=== PATIENT | male | born 1995 | race Caucasian/White ===

== ENCOUNTER 2024-03-23 06:21 | Day surgery (SDC) | payer OTHER ==
[2024-03-17 15:54] LABS: BILIRUBIN,URINE NEGATIVE (Neg); CLARITY,URINE CLEAR (Clear); COLOR,URINE YELLOW (Yellow); GLUCOSE, URINE NEGATIVE (Neg); KETONES,URINE TRACE mg/dl (Neg); LEUKOCYTE ESTERASE ,URINE NEGATIVE (Neg); NITRITES, URINE NEGATIVE (Neg); OCCULT BLOOD,URINE NEGATIVE (Neg); PROTEIN,URINE NEGATIVE (Neg); UROBILINOGEN,URINE 0.2 E.U/dL (0.2-1.0)
[2024-03-17 15:56] LABS: BASOPHILS % (AUTO) 0.9 % (0-1); EOSINOPHILS # (AUTO) 0.1 X10'3 (0-0.9); EOSINOPHILS % (AUTO) 1.9 % (0-6); MEAN CORPUSCULAR HEMOGLOBIN 31.4 PG (27.0-31.0); MEAN CORPUSCULAR HGB CONC 34.1 g/dL (33.0-36.5); MEAN CORPUSCULAR VOLUME 92.3 FL (78-98); MEAN PLATELET VOLUME 8.8 FL (7.4-10.4); MONOCYTES # (AUTO) 0.5 X10'3 (0-0.9); MONOCYTES % (AUTO) 11.2 % (2-12); NEUTROPHILS # (AUTO) 1.9 X10'3 (1.8-7.7); PRE OP HEMATOCRIT 51.2 % (42.0-52.0); PRE OP HEMOGLOBIN 17.4 g/dL (14.0-17.9); PRE OP PLATELET COUNT 248 X10'3 (140-440); PRE OP WHITE BLOOD COUNT 4.5 10'3 (4.8-10.8); RED BLOOD COUNT 5.55 X10'6 (4.70-6.10); RED CELL DISTRIBUTION WIDTH 13.7 % (11.5-14.5)
[2024-03-17 16:10] LABS: UA COLLECTION TYPE NON-SPECIFIED
[2024-03-17 16:15] LABS: ALKALINE PHOSPHATASE 122 IU/L (46-116); BLOOD UREA NITROGEN 5 MG/DL (7-18); CALCIUM 8.9 MG/DL (8.5-10.1); CHLORIDE 104 MMOL/L (99-107); CREATININE 0.83 MG/DL (0.60-1.10); PRE OP ANION GAP 14 (8-16); PRE OP AST 77 U/L (10-37); PRE OP BILIRUB, TOTAL 0.5 MG/DL (0.0-1.0); PRE OP GLUCOSE 101 MG/DL (70-104); PRE OP POTASSIUM 3.9 MMOL/L (3.4-5.1); PRE OP SODIUM 141 MMOL/L (135-145); TOTAL CARBON DIOXIDE 23.5 MMOL/L (24-32); TOTAL PROTEIN 8.2 G/DL (6.4-8.2); eGFR > 90 ML/MIN
[2024-03-17 16:16] LABS: PRE OP ALT 124 U/L (30-65)
[2024-03-17 16:26] LABS: PRE OP PROTIME 10.6 SECONDS (9.0-12.0)
[~2024-03-23] VITALS: Ht 175.3 cm; Wt 116.2 kg
[2024-03-23] VITALS (12 sets, daily range): BP systolic 120–158; BP diastolic 80–106; PULSE 68–102; RESP 11–19; TEMP 98.5; O2SAT 93–100
[2024-03-23] MEDS: cefazolin 2gm/D5W 100mL 100 ML IV ONE (05:30)
[~2024-03-23 06:21] MED LIST: IBUP-1986 PO; METH-798 PO; TRAM50TA2 PO
[2024-03-23] MEDS ORDERED: bacitracin 15gm ointment TP ONE ×2 (06:55→06:56)
[2024-03-23] MEDS ORDERED: BUPIVAcaine 2.5mg/ml inj 50ml vial (contains preservative) ONE ×2 (06:55→10:14)
[2024-03-23] MEDS: famotidine 20mg tablet PO ONE (07:05)
[2024-03-23] MEDS: ringers solution, lacted 1,000 ML IV SCH (07:06)
[2024-03-23] MEDS ORDERED: ROPIVAcaine 0.5% (5mg/ml) 30ml vial ONE (08:33)
[2024-03-23] MEDS ORDERED: sevoflurane 250ml liquid IH ONE (08:45)
[2024-03-23] MEDS ORDERED: fentaNYL/PF 50MCG/1 ML 2ML syringe ONE (08:48)
[2024-03-23] MEDS ORDERED: LIDOcaine 1%/PF 5ML 10 MG/ML VIAL ONE (09:58)
[2024-03-23] MEDS ORDERED: propofol inj 20 ML IV ONE ×2 (09:58)
[2024-03-23] MEDS ORDERED: glycopyrrolate 0.2mg/ml inj ONE (10:09)
[2024-03-23] MEDS ORDERED: ondansetron/PF 4mg/2ml inj ONE (10:22)
[2024-03-23] MEDS ORDERED: HYDROmorphone/PF 0.2 MG/ML SYRINGE IV PRN (10:35)
[2024-03-23] MEDS ORDERED: ringers solution, lacted 1,000 ML IV SCH (10:35)
[2024-03-23] MEDS ORDERED: acetaminophen 1,000mg/100ml IV 100 ML IV ONE (10:35)
[2024-03-23] MEDS ORDERED: fentaNYL/PF 50MCG/1 ML 2ML syringe IV PRN (10:35)
[2024-03-23] MEDS ORDERED: ondansetron/PF 4mg/2ml inj IV PRN (10:35)
[2024-03-23] MEDS ORDERED: proCHLORperazine 10 MG/2 ml inj IV PRN (10:35)
[2024-03-23] MEDS: BUPIVAcaine 2.5mg/ml inj 50ml vial (contains preservative) SQ ONE (10:36)
== END 2024-03-23 12:32 | disposition home or self-care (01) ==
LOC: OR 06:21
PROVIDERS: ATTEND Podiatrist Foot & Ankle Surgery
DX: S93.492A Sprain of other ligament of left ankle, initial encounter (principal); M25.372 Other instability, left ankle; G89.18 Other acute postprocedural pain; J45.909 Unspecified asthma, uncomplicated; Z79.1 Long term (current) use of non-steroidal anti-inflammatories (NSAID); Z79.899 Other long term (current) drug therapy; Z90.49 Acquired absence of other specified parts of digestive tract; Z98.890 Other specified postprocedural states; X58.XXXA Exposure to other specified factors, initial encounter; Y93.89 Activity, other specified; Y92.89 Other specified places as the place of occurrence of the external cause; Y99.8 Other external cause status; Z79.01 Long term (current) use of anticoagulants
CPT/HCPCS: 27696; 36415; 64445; 64447; 73600; 80053; 81003; 82948; 85025; 85610; 85730; 93005; C1713; J0690; J2405; J2704; J2795; J3010; J3490; J7030; J7120; Z7506; Z7508; Z7512; 76000; A4618; A6253; A6446; A6449; A6455; A7000